=== PATIENT | male | born 1940 | race Caucasian/White ===

== ENCOUNTER → 2021-01-26 | Outpatient (CLI) | payer MEDICARE ==
[2014-09-04 13:45] VITALS: BP 94/61
[~2021-01-26] MED LIST: ALLO300T PO; ASPI325T8 PO; CLOP75TA57 PO; CRESTOR20 MG PO; GABA300C18 PO; GLIP10TA24 PO; IOHEXOL 180 MG/ML 10 ML VIAL. IT ONE; LIDOCAINE 1% Multi-Dose 20 ML VIAL. INJ ONE; LISI20TA18 PO; METF850T8 PO; METO50TA6 PO; NIAC500T PO; OMEP20TA8 PO; OXYB15TA4 PO
--- NOTE | 2021-01-26 11:22 | RAD ---
EXAM: Fluoroscopic guided lumbar puncture for CT myelography; lumbar spine CT myelogram. HISTORY: Back pain. Bilateral lower extremity radiculopathy. TECHNIQUE: The risks of the procedure were discussed with the patient and written and verbal consent was obtained. A timeout was performed. Fluoroscopic imaging of the lumbar spine was performed and a s ite overlying L5-S1 was selected for needle entry. The skin in this location was sterilely prepped, d raped and infiltrated with 1 percent lidocaine. A 22-gauge spinal needle was advanced into the thecal sac. 12 cc Omnipaque 180 into the thecal contrast was injected. The needle was removed and a sterile bandage was placed at the needle entry site. Lateral neutral, flexion and extension upright fluorosc opic images were obtained. A total of 4 images were obtained for total fluoroscopy time of 1.2 minute s. The patient was transferred to the CT suite for the post injection CT portion of the exam and disc harged one hour following the procedure in stable condition without complication. *One or more of the following individualized dose reduction techniques were utilized for this examina tion: 1. Automated exposure control. 2. Adjustment of the mA and/or kV according to patient size. 3. Use of iterative reconstruction technique. COMPARISON: MRI dated 06/26/2009. CT dated 06/03/2011. FINDINGS: The fluoroscopic images demonstrate instrumented posterior spinal fusion and disc space fus ion device placement at L2-L4. There is no motion at the fused levels between flexion and extension. There is multilevel endplate remodeling. There is mild levoscoliosis centered at L3. Evaluation of the lower thorax demonstrates nodular pleural thickening and calcification due to pleur al plaque. This is not formally assessed on this exam. There is aortobiiliac atherosclerosis. There i s degenerative spurring and partial ankylosis of the sacroiliac joints. The conus terminates at T12-L 1. At T12-L1, there is a small left paracentral disc protrusion. There is severe right and moderate to severe left facet arthropathy. There is no stenosis. At L1-L2, there is a disc bulge and endplate remodeling. There is severe bilateral facet arthropathy. There is hypertrophy of the ligamentum flavum. There is prominent dorsal epidural fat. There is mild right and moderate left foraminal stenosis. There is severe central canal stenosis. At L2-L3, there is instrumented fusion. There is laminectomy decompression. There is mild left forami nal stenosis. At L3-L4, there is instrumented fusion. There is laminectomy decompression.. There are bridging osteo phytes and postoperative bone fusion resulting in moderate right and severe left foraminal stenosis. At L4-L5, there is instrumented fusion. There is laminectomy decompression. There is a prominent left paracentral to extra foraminal bridging osteophyte superimposed on postoperative bone fusion resulti ng in severe left foraminal stenosis. At L5-S1, there is a disc bulge and endplate remodeling. There is severe left greater than right face t arthropathy. There is mild central canal stenosis. IMPRESSION: 1. Instrumented posterior spinal fusion and disc space fusion device placement at L2-L4. There is no evidence of instrumentation loosening or motion at the fused levels between flexion and extension. 2. Multilevel degenerative change involving the lumbar spine, described in detail above. There is ass ociated stenosis at the aforementioned levels. The central canal stenosis is most severe at L1-L2. Th e right foraminal stenosis is most significant at L3-L4 and the left foraminal stenosis is most signi ficant at L4-L5. Electronically signed by: Cynthia Barnes MD (01/26/2021 11:20 AM) [id number]
== END | disposition home or self-care (01) ==
LOC: RAD 09:12
PROVIDERS: ATTEND Neurological Surgery
DX: M47.26 Other spondylosis with radiculopathy, lumbar region (principal); M48.061 Spinal stenosis, lumbar region without neurogenic claudication; I10 Essential (primary) hypertension; E78.00 Pure hypercholesterolemia, unspecified; E11.9 Type 2 diabetes mellitus without complications; Z79.82 Long term (current) use of aspirin; Z79.84 Long term (current) use of oral hypoglycemic drugs; Z79.899 Other long term (current) drug therapy; Z98.890 Other specified postprocedural states
CPT/HCPCS: 62304; 72132; J3490; Q9965